=== PATIENT | female | born 1950 | race Caucasian/White ===

== ENCOUNTER 2019-02-02 10:14 | Emergency (ER) | payer OTHER ==
[2019-02-02] MEDS ORDERED: DIPHTH,PERTUSS(ACELL),TET 0.5 ML DISP.SYRIN IM ONE ×2 (10:18→10:26)
[2019-02-02] MEDS ORDERED: AMOX TR/POT CLAV 875MG/125MG TABLETS (FP) PO ONE (10:18)
--- NOTE | 2019-02-02 10:18 | PDOC ---
History of Present Illness - General Chief Complaint: Laceration Stated Complaint: laceration to right index finger with swelling Time Seen by Provider: 02/02/19 10:16 - History of Present Illness Initial Comments: 02/02/19 10:25 Pt presents to the ED complaining of worsening pain and swelling to her R index finger. Patient scraped her index finger on a janae metal gate yesterday and awoke today with worsening pain and swelling of the digit. Uncertain of her last tetanus. Denies fever, nausea or vomiting. Denies other injuries. Past History - Past Medical History Allergies/Adverse Reactions: Allergies Allergy/AdvReac Type Severity Reaction Status Date / Time No Known Allergies Allergy Verified 02/02/19 10:16 Home Medications: Ambulatory Orders Amoxicillin/Potassium Clav [Augmentin 875-125 Tablet] 1 each PO BID #14 tablet 02/02/19 Ranitidine HCl 150 mg PO DAILY 02/02/19 Rosuvastatin Calcium [Crestor] 5 mg PO DAILY 02/02/19 COPD: No GI Disorders: Yes (GERD) Hypercholesterolemia: Yes Review of Systems - Review of Systems Comments:: 02/02/19 10:27 HAND: + pain, erythema and tenderness Gen: No fever GI: no nausea or vomiting *Physical Exam - Physical Exam Comments: 02/02/19 10:28 HAND: + two small abrasions to index finger proximal to PIP joint. + mild erythema, swelling and tenderness. Intact flexion and extension against resistance at the PIP and DIP. Medical Decision Making - Medical Decision Making 02/02/19 10:20 Pt presents to the ED with pain and swelling to the R index finger after scraping her finger on metal yesterday. Denies fever, nausea or vomiting or other injuries. Mild pain and swelling to the PIP joint and proximal, consistent with developing cellulitis. Uncertain of last tetanus. Will give tetanus, start augmentin, bring back for cellulitis check in two days. Patient instructed to return immediately for worsening redness or systemic signs of infection. *DC/Admit/Observation/Transfer Diagnosis at time of Disposition: Cellulitis of finger of right hand - Discharge Dispostion Disposition: HOME Condition at time of disposition: Good Decision to Admit order: No - Prescriptions Prescriptions: Amoxicillin/Potassium Clav [Augmentin 875-125 Tablet] 1 each PO BID #14 tablet - Referrals Referrals: Juanjose Nj MD [Primary Care Provider] - - Patient Instructions Printed Discharge Instructions: DI for Cellulitis -- Adult Additional Instructions: You came to the ED for pain and swelling in your finger, which most likely is caused by a skin infection. You should return to the ED immediately for severe pain and swelling, fever, nausea or vomiting, or redness that spreads down your hand or arm. Return to the ED in two days for a wound check. - Post Discharge Activity
[2019-02-02 10:24] VITALS: BP 135/73; PULSE 73; TEMP 98.7; BMI 29.7
[2019-02-02] MEDS ORDERED: AMOX TR/POT CLAV 875MG/125MG TABLETS (FP) ONE (10:26)
== END 2019-02-02 10:39 | disposition home or self-care (01) ==
LOC: FER 10:14
PROC: 3E0234Z Introduction of Serum, Toxoid and Vaccine into Muscle, Percutaneous Approach (ICD-10-PCS; principal; 2019-02-02)
DX: L03.011 Cellulitis of right finger (principal); K21.9 Gastro-esophageal reflux disease without esophagitis; E78.00 Pure hypercholesterolemia, unspecified
CPT/HCPCS: 90471; 90715; 99281-25

== ENCOUNTER 2019-02-04 10:59 | Emergency (ER) | payer OTHER ==
[2019-02-04 11:10] VITALS: BP 133/89; PULSE 87; TEMP 98.1; BMI 29.7
--- NOTE | 2019-02-04 11:16 | PDOC ---
History of Present Illness - General Chief Complaint: Revisit,Wound Recheck Stated Complaint: WOUND CHECK TO RT 2ND FINGER Time Seen by Provider: 02/04/19 11:06 History Source: Patient, Old Records Exam Limitations: No Limitations - History of Present Illness Initial Comments: 02/04/19 11:19 68 year old female returns for wound check of right 2nd index. Currently has no complaints at this moment. No fevers, chills. Was seen 2 days ago was cellulitis of the right 2nd digit. Erythema improved. Past History - Past Medical History Allergies/Adverse Reactions: Allergies Allergy/AdvReac Type Severity Reaction Status Date / Time No Known Allergies Allergy Verified 02/04/19 11:01 Home Medications: Ambulatory Orders Amoxicillin/Potassium Clav [Augmentin 875-125 Tablet] 1 each PO BID #14 tablet 02/02/19 Ranitidine HCl 150 mg PO DAILY 02/02/19 Rosuvastatin Calcium [Crestor] 5 mg PO DAILY 02/02/19 Polyethylene Glycol 3350 [Miralax (For Daily Use) -] 17 gm PO DAILY 02/04/19 COPD: No GI Disorders: Yes (GERD) Hypercholesterolemia: Yes - Suicide/Smoking/Psychosocial Hx Smoking History: Never smoked Hx Alcohol Use: No Drug/Substance Use Hx: No Review of Systems - Review of Systems Able to Perform ROS?: Yes Comments:: 02/04/19 11:19 GENERAL/CONSTITUTIONAL: [No fever or chills. No weakness. No weight change.] HEAD, EYES, EARS, NOSE AND THROAT: [No change in vision. No ear pain or discharge. No sore throat.] CARDIOVASCULAR: [No chest pain or shortness of breath.] RESPIRATORY: [No cough, wheezing, or hemoptysis.] GASTROINTESTINAL: [No nausea, vomiting, diarrhea or constipation. No rectal bleeding.] GENITOURINARY: [No dysuria, frequency, or change in urination.] MUSCULOSKELETAL: [No joint or muscle swelling or pain. No neck or back pain.] SKIN AND BREASTS: [No easy bruising.] + improving rash NEUROLOGIC: [No headache, vertigo, loss of consciousness, or loss of sensation.] PSYCHIATRIC: [No depression or anxiety.] ENDOCRINE: [No increased thirst. No abnormal weight change.] HEMATOLOGIC/LYMPHATIC: [No anemia, easy bleeding, or history of blood clots.] ALLERGIC/IMMUNOLOGIC: [No hives or skin allergy. No latex allergy.] *Physical Exam - Physical Exam Comments: 02/04/19 11:20 GENERAL: Awake, alert, and fully oriented, in no acute distress HEAD: No signs of trauma EYES: EOMI, sclera anicteric, conjunctiva clear ENT: Auricles normal inspection, hearing grossly normal, nares patent, NECK: Normal ROM, suppleund. No masses EXTREMITIES: RUE: 2+ radial pulse. Sensation and strength intact throughout the median/radian/ ulnar nerve distribution. Full flexion and extension of all digits. No erythema appreciated. No tenderness elicited. NEUROLOGICAL: Cranial nerves II through XII grossly intact. Normal speech, normal gait SKIN: Warm, Dry, normal turgor, no rashes or lesions noted. Medical Decision Making - Medical Decision Making 02/04/19 11:21 Vital Signs Temp Pulse Resp BP Pulse Ox 98.1 F 87 18 133/89 99 02/04/19 11:00 02/04/19 11:00 02/04/19 11:00 02/04/19 11:00 02/04/19 11:00 Wound appears drastically improved. Pt should continue taking the antibiotics (augmentin). Return precautions given including worsening redness, fever, or diarrhea. *DC/Admit/Observation/Transfer Diagnosis at time of Disposition: Visit for wound check - Discharge Dispostion Disposition: HOME Condition at time of disposition: Stable Decision to Admit order: No - Referrals Referrals: Juanjose Nj MD [Primary Care Provider] - - Patient Instructions Additional Instructions: You have returned for a wound check. At this time, your wound is healing nicely. Please continue to take the antibiotics. You can also take a cup of yogurt as well while you take the antibiotics. If you notice any uncontrollable diarrhea or return of the redness, please return to the ER. Otherwise, you can follow up with your primary care physician. - Post Discharge Activity
== END 2019-02-04 11:25 | disposition home or self-care (01) ==
LOC: FER 10:59
DX: Z48.00 Encounter for change or removal of nonsurgical wound dressing (principal)
CPT/HCPCS: 99281-25